=== PATIENT | male | born 1985 | race Caucasian/White ===

== ENCOUNTER 2017-09-01 16:46 | Emergency (ER) | payer BC ==
[2017-09-01] MEDS ORDERED: Sodium Chloride 0.9% 10 ML Syringe FLUSH PRN (16:56)
[2017-09-01] MEDS ORDERED: LORazepam 2 MG/ML SDV IVPUSH ONE (16:58)
[2017-09-01] MEDS ORDERED: Sodium Chloride 0.9% 1,000 ML IV SCH (17:00)
--- NOTE | 2017-09-01 19:07 | EDM.PDOC ---
ED HPI GENERAL MEDICAL PROBLEM - General Chief Complaint: Neurological Problem Stated Complaint: [facility] Time Seen by Provider: 09/01/17 16:51 Source of Information: Reports: Patient, EMS, Family History Limitations: Reports: No Limitations - History of Present Illness INITIAL COMMENTS - FREE TEXT/NARRATIVE: The patient presents by ambulance from home for a seizure. He remembers walking down the [place]ores to his bedroom and then having the police and paramedics around him. He had a generalized tonic clonic seizure. It lasted for a few minutes. He had a seizure over a year ago in May of 2016. He saw a neurologist in [place] twice and he had a complete work up to include an EEG and MRI of his brain. The work up was negative. He did not go on any meds. He has been doing good until today. He has not been getting much sleep lately. When he first arrived he admitted to drinking beer and some shots of vodka but when his was here she said he only gets 1 beer a weekend. He has no chest pain, fever, chills, cough, congestion or runny nose. He has no abdominal pain, nausea or vomiting. Onset: Sudden Duration: Minutes: Location: Reports: Generalized Severity: Severe Improves with: Reports: None Worsens with: Reports: None Associated Symptoms: Reports: No Other Symptoms Treatments [employer]: Reports: EKG Lower Back Pain Score (Numeric/FACES): 6 - Related Data Allergies Allergy/AdvReac Type Severity Reaction Status Date / Time No Known Allergies Allergy Verified 09/01/17 16:56 Home Meds: Home Meds levETIRAcetam [Keppra] 750 mg PO BID #60 tab 09/01/17 [Rx] Past Medical History Musculoskeletal History: Reports: Fracture Neurological History: Reports: Seizure Oncologic (Cancer) History: Reports: None Social & Family History - Tobacco Use Smoking Status *Q: Never Smoker - Alcohol Use Days Per Week of Alcohol Use: 7 Number of Drinks Per Day: 2 Total Drinks Per Week: 14 - Recreational Drug Use Recreational Drug Use: No ED ROS GENERAL - Review of Systems Review Of Systems: See Below Constitutional: Reports: No Symptoms HEENT: Reports: No Symptoms Respiratory: Reports: No Symptoms Cardiovascular: Reports: No Symptoms Endocrine: Reports: No Symptoms GI/Abdominal: Reports: No Symptoms : Reports: No Symptoms Musculoskeletal: Reports: No Symptoms Skin: Reports: No Symptoms Neurological: Reports: Seizure - Physical Exam Exam: See Below Exam Limited By: No Limitations General Appearance: Alert, No Apparent Distress Ears: Normal External Exam Nose: Normal Inspection Head Exam: Atraumatic, Normocephalic Neck: Normal Inspection Respiratory/Chest: No Respiratory Distress, Lungs Clear, Normal Breath Sounds Cardiovascular: Regular Rate, Rhythm, No Edema, No Murmur GI/Abdominal: Soft, Non-Tender, No Organomegaly, No Mass Neuro Exam (Abbreviated): Alert, Oriented, No Motor/Sensory Deficits Course - Vital Signs Last Recorded V/S: Last Vital Signs Temp 98.8 F 09/01/17 16:50 Pulse 23 L 09/01/17 16:50 Resp 17 09/01/17 16:50 BP 141/89 H 09/01/17 16:50 Pulse Ox 93 L 09/01/17 16:50 - Orders/Labs/Meds Orders: Active Orders 24 hr Category Date Time Status Cardiac Monitoring [RC] . DIRECTED Care 09/01/17 16:56 Active Peripheral IV Care [RC] . DIRECTED Care 09/01/17 16:57 Active Head wo Cont [CT] Stat Exams 09/01/17 16:57 Taken Lumbar Spine 2 or 3V [CR] Stat Exams 09/01/17 16:57 Taken DRUG SCREEN, URINE [URCHEM] Stat Lab 09/01/17 16:56 Ordered Sodium Chloride 0.9% [Normal Saline] 1,000 ml Med 09/01/17 17:00 Active IV ASDIRECTED Sodium Chloride 0.9% [Saline Flush] Med 09/01/17 16:56 Active 10 ml FLUSH ASDIRECTED PRN Peripheral IV Insertion Adult [OM.PC] Stat Oth 09/01/17 16:56 Ordered Medication Orders Sodium Chloride (Normal Saline) 1,000 mls @ 125 mls/hr IV ASDIRECTED CRISSY Last Admin: 09/01/17 17:06 Dose: 125 mls/hr Sodium Chloride (Saline Flush) 10 ml FLUSH ASDIRECTED PRN PRN Reason: Keep Vein Open Last Admin: 09/01/17 17:00 Dose: 10 ml Labs: Laboratory Tests 09/01/17 09/01/17 Range/Units 16:55 16:55 WBC 7.74 (4.23-9.07) K/mm3 RBC 5.15 (4.63-6.08) M/mm3 Hgb 16.5 (13.7-17.5) gm/L Hct 45.7 (40.1-51.0) % MCV 88.7 (79.0-92.2) fl MCH 32.0 (25.7-32.2) pg MCHC 36.1 H (32.2-35.5) g/dl RDW Std Deviation 40.8 (35.1-43.9) fL Plt Count 157 L (163-337) K/mm3 MPV 9.7 (9.4-12.3) fl Neut % (Auto) 63.9 (34.0-67.9) % Lymph % (Auto) 25.5 (21.8-53.1) % Stephenson % (Auto) 9.4 (5.3-12.2) % Eos % (Auto) 0.4 L (0.8-7.0) Baso % (Auto) 0.4 (0.1-1.2) % Neut # (Auto) 4.95 (1.78-5.38) K/mm3 Lymph # (Auto) 1.97 (1.32-3.57) K/mm3 Stephenson # (Auto) 0.73 (0.30-0.82) K/mm3 Eos # (Auto) 0.03 L (0.04-0.54) K/mm3 Baso # (Auto) 0.03 (0.01-0.08) K/mm3 Sodium 135 L (136-145) mEq/L Potassium 3.3 L (3.5-5.1) mEq/L Chloride 97 L (98-107) mEq/L Carbon Dioxide 22 (21-32) mEq/L Anion Gap 19.3 H (5-15) BUN 16 (7-18) mg/dL Creatinine 1.5 H (0.7-1.3) mg/dL Est Cr Clr Drug Dosing 81.44 mL/min Estimated GFR (MDRD) 54 (>60) mL/min BUN/Creatinine Ratio 10.7 L (14-18) Glucose 140 H (74-106) mg/dL Calcium 9.8 (8.5-10.1) mg/dL Magnesium 2.3 (1.8-2.4) mg/dl Total Bilirubin 1.9 H (0.2-1.0) mg/dL AST 163 H (15-37) U/L ALT 158 H (16-63) U/L Alkaline Phosphatase 100 (46-116) U/L Total Protein 8.0 (6.4-8.2) g/dl Albumin 3.8 (3.4-5.0) g/dl Globulin 4.2 gm/dL Albumin/Globulin Ratio 0.9 L (1-2) Ethyl Alcohol 0.00 (0.00) gm% Meds: Medications Generic Name Dose Route Start Last Admin Trade Name Freq PRN Reason Stop Dose Admin Sodium Chloride 1,000 mls @ 125 mls/hr 09/01/17 17:00 09/01/17 17:06 Normal Saline IV 125 mls/hr ASDIRECTED CRISSY Administration Sodium Chloride 10 ml 09/01/17 16:56 09/01/17 17:00 Saline Flush FLUSH 10 ml ASDIRECTED PRN Administration Keep Vein Open Discontinued Medications Generic Name Dose Route Start Last Admin Trade Name Freq PRN Reason Stop Dose Admin Lorazepam 1 mg 09/01/17 16:58 09/01/17 17:03 Ativan IVPUSH 09/01/17 16:59 1 mg ONETIME ONE Administration - Re-Assessments/Exams Free Text/Narrative Re-Assessment/Exam: 09/01/17 19:08 I ordered an IV NS at 125mL/hr, ativan 1mg IV, CT of his head and labs. 09/01/17 19:[address] shows no acute intracranial process. Potential chiari 1 malformation. His CBC looks good. His Na is a little low at 135. His K was low at 3.3. His creatinine was elevated at 1.5. His glucose was elevated at 140. His total bili is elevated at 1.9. His AST is elevated at 163. his ALT is elevated at 158. His ETOH is negative. I called Dr Harmon at [facility] in [place] and he recommended loading him with keppra here and getting him on some keppra 750mg 2 times per day. Departure - Departure Time of Disposition: 19:15 Disposition: Home, Self-Care 01 Condition: Good Clinical Impression: Seizure - Discharge Information Prescriptions: levETIRAcetam [Keppra] 750 mg PO BID #60 tab Referrals: Renate Castellanos PA-C [Primary Care Provider] - 1 Week Bruce Harmon MD [Ordering Only Provider] - 1 Week Additional Instructions: Stop drinking alcohol. Take the keppra 2 times per day. Drink plenty of fluids and try to get some rest. Please return if you are worse. Follow up with Dr Harmon or one of his partners. - My Orders Last 24 Hours: My Active Orders 09/01/17 16:56 Cardiac Monitoring [RC] . DIRECTED DRUG SCREEN, URINE [URCHEM] Stat Sodium Chloride 0.9% [Saline Flush] 10 ml FLUSH ASDIRECTED PRN Peripheral IV Insertion Adult [OM.PC] Stat 09/01/17 16:57 Peripheral IV Care [RC] . DIRECTED Head wo Cont [CT] Stat Lumbar Spine 2 or 3V [CR] Stat 09/01/17 17:00 Sodium Chloride 0.9% [Normal Saline] 1,000 ml IV ASDIRECTED - Assessment/Plan Last 24 Hours: My Active Orders 09/01/17 16:56 Cardiac Monitoring [RC] . DIRECTED DRUG SCREEN, URINE [URCHEM] Stat Sodium Chloride 0.9% [Saline Flush] 10 ml FLUSH ASDIRECTED PRN Peripheral IV Insertion Adult [OM.PC] Stat 09/01/17 16:57 Peripheral IV Care [RC] . DIRECTED Head wo Cont [CT] Stat Lumbar Spine 2 or 3V [CR] Stat 09/01/17 17:00 Sodium Chloride 0.9% [Normal Saline] 1,000 ml IV ASDIRECTED
[2017-09-01] MEDS ORDERED: Sodium Chloride 0.9% 1,000 ML IV ONE (19:09)
[2017-09-01] MEDS ORDERED: levETIRAcetam 1,000 MG in Sodium Chloride 0.9% 100 ML IV ONE (19:10)
--- NOTE | 2017-09-03 08:01 | CR ---
Lumbar spine: AP, lateral and coned-down lateral views centered to the lumbosacral junction were obtained. Comparison: No previous study. Anterior wedge deformity is noted of L1. Age of this is indeterminate by x-ray. Other vertebral body heights and disc spaces are maintained. Pedicles as well as transverse and spinous processes are intact. Sacroiliac joints are within normal limits. Impression: 1. Anterior wedge deformity of L1. Age of this is indeterminate. If further aging is needed, MRI would be helpful. 2. No additional abnormality is seen on three-view lumbar spine study. Diagnostic code #3
--- NOTE | 2017-09-03 08:01 | CT ---
Head CT Technique: Multiple axial sections through the brain were obtained. Intravenous contrast was not utilized. Comparison: No prior intracranial imaging. Findings: Ventricles along the basal cisterns and sulci over the convexities are within normal limits for the patient's age. Calcification is seen within the anterior left scalp and posterior right scalp which is believed to be incidental. No abnormal parenchymal densities are seen. No evidence of intracranial hemorrhage. No midline shift or mass effect is seen. Bone window settings were reviewed which show the visualized sinuses to appear clear. No acute calvarial abnormality is seen. Impression: 1. Nothing acute is seen on noncontrast head CT study. Preliminary report by samuel states possible Chiari I malformation which I do not believe is present as scans did not include the inferior foramen Magnum to confirm. Diagnostic code #1 I agree with preliminary report from [facility], with incidental disagreement as noted above, preliminary report finalized at 09/01/17, 6:33 PM Central Time
== END 2017-09-01 20:14 | disposition home or self-care (01) ==
LOC: JD.ED 16:46
DX: R56.9 Unspecified convulsions (principal)
CPT/HCPCS: 36415; 70450; 72100; 80053; 83735; 85025; 96361; 96365; 96375; 99285; G0480; J1953; J2060; J7030; J7040; J7050; 99284

== ENCOUNTER 2017-10-09 14:12 | Emergency (ER) | payer BC ==
[2017-10-09] MEDS ORDERED: Sodium Chloride 0.9% 10 ML Syringe FLUSH PRN (14:45)
[2017-10-09] MEDS ORDERED: Ondansetron 4 MG/2 ML SDV IVPUSH ONE (16:17)
--- NOTE | 2017-10-09 16:17 | EDM.PDOC ---
ED HPI GENERAL MEDICAL PROBLEM - General Chief Complaint: Neurological Problem Stated Complaint: HAS HAD 2 SEIZUERES TODAY Time Seen by Provider: 10/09/17 14:39 Source of Information: Reports: Patient, RN Notes Reviewed - History of Present Illness INITIAL COMMENTS - FREE TEXT/NARRATIVE: 31-year-old male has been brought in by having had 2 seizures today. He had one seizure very early this morning about 9 hours ago and then had a second seizure around noon today about one hour ago. His states that he stiffened up, eyes rolled back with each seizure lasting in about the 5-10 minute range. After each seizure he was very sleepy for a while and also confused for a while he has had prior seizures, one about a month ago and then another about 15 months ago he has seen neurology after that first seizure 15 months ago, had EEG, MRI. After his seizure a month ago Keppra 750 twice a day was prescribed. Patient took one dose, red the sheet about side effects and decided not to take that. His prior seizures have felt to be alcohol withdrawal related. Did have a couple of shots of alcohol last evening after "not having alcohol for a month". He is otherwise healthy with no other known medical problems. Middle Back Pain Score (Numeric/FACES): 6 - Related Data Allergies Allergy/AdvReac Type Severity Reaction Status Date / Time No Known Allergies Allergy Verified 10/09/17 14:18 Home Meds: Home Meds levETIRAcetam [Keppra] 750 mg PO BID #60 tab 09/01/17 [Rx] Past Medical History Musculoskeletal History: Reports: Fracture Neurological History: Reports: Seizure Oncologic (Cancer) History: Reports: None Social & Family History - Tobacco Use Smoking Status *Q: Never Smoker Second Hand Smoke Exposure: No - Caffeine Use Caffeine Use: Reports: None - Alcohol Use Days Per Week of Alcohol Use: 7 Number of Drinks Per Day: 2 Total Drinks Per Week: 14 - Recreational Drug Use Recreational Drug Use: No ED ROS GENERAL - Review of Systems Review Of Systems: See Below Constitutional: Denies: Fever, Chills HEENT: Denies: Throat Pain Respiratory: Denies: Shortness of Breath Cardiovascular: Denies: Chest Pain GI/Abdominal: Denies: Abdominal Pain, Nausea, Vomiting Musculoskeletal: Reports: Back Pain Neurological: Reports: Headache - Physical Exam Exam: See Below General Appearance: Alert, Anxious Eye Exam: Bilateral Eye: PERRL Ears: Normal External Exam Nose: Normal Inspection Throat/Mouth: Evidence of Tongue Biting (Small abrasion left lateral tongue) Head Exam: Atraumatic. No: Facial Swelling Neck: Supple, Full Range of Motion Respiratory/Chest: No Respiratory Distress, Lungs Clear, Normal Breath Sounds Cardiovascular: Regular Rate, Rhythm GI/Abdominal: Soft, Non-Tender Neuro Exam (Abbreviated): Alert, Oriented, No Motor/Sensory Deficits Skin Exam: Warm, Dry, Normal Color Course - Vital Signs Last Recorded V/S: Last Vital Signs Temp 98.4 F 10/09/17 14:19 Pulse 103 H 10/09/17 14:19 Resp 18 10/09/17 14:19 BP 127/89 10/09/17 14:19 Pulse Ox 93 L 10/09/17 14:19 - Orders/Labs/Meds Orders: Active Orders 24 hr Category Date Time Status Peripheral IV Care [RC] . DIRECTED Care 10/09/17 14:46 Active Sodium Chloride 0.9% [Saline Flush] Med 10/09/17 14:45 Active 10 ml FLUSH ASDIRECTED PRN Peripheral IV Insertion Adult [OM.PC] Stat Oth 10/09/17 14:46 Ordered Medication Orders Sodium Chloride (Saline Flush) 10 ml FLUSH ASDIRECTED PRN PRN Reason: Keep Vein Open Last Admin: 10/09/17 15:59 Dose: 10 ml Labs: Laboratory Tests 10/09/17 10/09/17 Range/Units 14:20 14:20 WBC 14.93 H (4.23-9.07) K/mm3 RBC 5.35 (4.63-6.08) M/mm3 Hgb 16.9 (13.7-17.5) gm/L Hct 47.6 (40.1-51.0) % MCV 89.0 (79.0-92.2) fl MCH 31.6 (25.7-32.2) pg MCHC 35.5 (32.2-35.5) g/dl RDW Std Deviation 39.6 (35.1-43.9) fL Plt Count 193 (163-337) K/mm3 MPV 10.3 (9.4-12.3) fl Neut % (Auto) 87.4 H (34.0-67.9) % Lymph % (Auto) 6.2 L (21.8-53.1) % Mcdonough % (Auto) 5.8 (5.3-12.2) % Eos % (Auto) 0.1 L (0.8-7.0) Baso % (Auto) 0.1 (0.1-1.2) % Neut # (Auto) 13.07 H (1.78-5.38) K/mm3 Lymph # (Auto) 0.92 L (1.32-3.57) K/mm3 Mcdonough # (Auto) 0.86 H (0.30-0.82) K/mm3 Eos # (Auto) 0.01 L (0.04-0.54) K/mm3 Baso # (Auto) 0.01 (0.01-0.08) K/mm3 Manual Slide Review Normal smear Sodium 137 (136-145) mEq/L Potassium 4.3 (3.5-5.1) mEq/L Chloride 102 (98-107) mEq/L Carbon Dioxide 23 (21-32) mEq/L Anion Gap 16.3 H (5-15) BUN 11 (7-18) mg/dL Creatinine 1.5 H (0.7-1.3) mg/dL Est Cr Clr Drug Dosing 81.44 mL/min Estimated GFR (MDRD) 54 (>60) mL/min BUN/Creatinine Ratio 7.3 L (14-18) Glucose 126 H (74-106) mg/dL Calcium 9.8 (8.5-10.1) mg/dL Total Bilirubin 1.2 H (0.2-1.0) mg/dL AST 48 H (15-37) U/L ALT 76 H (16-63) U/L Alkaline Phosphatase 88 (46-116) U/L Total Protein 8.4 H (6.4-8.2) g/dl Albumin 4.3 (3.4-5.0) g/dl Globulin 4.1 gm/dL Albumin/Globulin Ratio 1.1 (1-2) Meds: Medications Generic Name Dose Route Start Last Admin Trade Name Freq PRN Reason Stop Dose Admin Sodium Chloride 10 ml 10/09/17 14:45 10/09/17 15:59 Saline Flush FLUSH 10 ml ASDIRECTED PRN Administration Keep Vein Open Discontinued Medications Generic Name Dose Route Start Last Admin Trade Name Martin PRN Reason Stop Dose Admin Ondansetron HCl 4 mg 10/09/17 16:17 10/09/17 16:19 Zofran IVPUSH 10/09/17 16:18 4 mg ONETIME ONE Administration Ondansetron HCl Confirm 10/09/17 16:18 10/09/17 16:23 Zofran Administered 10/09/17 16:19 Not Given Dose 4 mg .ROUTE .[facility] ONE - Re-Assessments/Exams Free Text/Narrative Re-Assessment/Exam: 10/09/17 16:58. No further seizure activity while here in the ED. Labs came back relatively good. Zofran 4 mg IV for nausea. I offered to bolus him with Keppra but he wants to go home, discharge instructions as documented Departure - Departure Time of Disposition: 16:50 Disposition: Home, Self-Care 01 Condition: Fair Clinical Impression: Seizure - Discharge Information Instructions: Seizure, Adult, [id number] Referrals: PCP,None [Primary Care Provider] - Forms: ED Department Discharge Additional Instructions: Avoid further alcohol, drink plenty of water to maintain hydration, start Keppra as previously prescribed, take 750 mg orally when you get home and then take a second dose this evening toward bedtime, continue that twice daily. No driving for at least 3 months or until medically cleared by your medical provider to resume driving again. Follow-up with your regular medical provider or one of our clinic providers in about 1-2 weeks for recheck, return to ED as needed if symptoms worsening in any way. - My Orders Last 24 Hours: My Active Orders 10/09/17 14:45 Sodium Chloride 0.9% [Saline Flush] 10 ml FLUSH ASDIRECTED PRN 10/09/17 14:46 Peripheral IV Care [RC] . DIRECTED Peripheral IV Insertion Adult [OM.PC] Stat - Assessment/Plan Last 24 Hours: My Active Orders 10/09/17 14:45 Sodium Chloride 0.9% [Saline Flush] 10 ml FLUSH ASDIRECTED PRN 10/09/17 14:46 Peripheral IV Care [RC] . DIRECTED Peripheral IV Insertion Adult [OM.PC] Stat
[2017-10-09] MEDS ORDERED: Ondansetron 4 MG/2 ML SDV ONE (16:18)
== END 2017-10-09 16:58 | disposition home or self-care (01) ==
LOC: JD.ED 14:12
DX: R56.9 Unspecified convulsions (principal); Z79.899 Other long term (current) drug therapy
CPT/HCPCS: 36415; 80053; 85025; 96374; 99284; J2405; J7050

== ENCOUNTER 2018-09-16 09:05 | Emergency (ER) | payer BC ==
[2018-09-16] MEDS ORDERED: Sodium Chloride 0.9% 10 ML Syringe FLUSH PRN (09:21)
[2018-09-16] MEDS ORDERED: Sodium Chloride 0.9% 1,000 ML IV SCH ×2 (09:30→10:30)
[2018-09-16] MEDS ORDERED: LORazepam 2 MG/ML SDV IVPUSH ONE ×2 (09:31→10:26)
[2018-09-16] MEDS ORDERED: Ondansetron 4 MG/2 ML SDV IVPUSH ONE (09:31)
--- NOTE | 2018-09-16 10:22 | EDM.PDOCBH ---
ED HPI GENERAL MEDICAL PROBLEM - General Chief Complaint: Drug or Alcohol Abuse Stated Complaint: WITHDRAWL FROM ALCOHOL-SEIZURES Time Seen by Provider: 09/16/18 09:20 Source of Information: Reports: Patient, RN Notes Reviewed - History of Present Illness INITIAL COMMENTS - FREE TEXT/NARRATIVE: 32-year-old male comes in with symptoms of alcohol withdrawal. He has been drinking quite heavily, steadily for about 3 or 4 years. He was dry about 4 years ago for 8 months prior to back to drinking heavily. He drinks vodka daily. That is messing up his life. He did stop 1-1/2 days ago. No alcohol yesterday or today. He is getting the shakes. He is very nauseated, difficulty drinking even water and has been vomiting through the night. He states that when he has tried to stop drinking in the past he has suffered withdrawal seizures. He feels like his brain is "grow foggy" this morning. He states he does see something like flashes and as though the han are moving a bit but nothing super bad at this time for visual or auditory hallucinations. Abdomen Pain Score (Numeric/FACES): 8 - Related Data Allergies Allergy/AdvReac Type Severity Reaction Status Date / Time No Known Allergies Allergy Verified 09/16/18 09:20 Home Meds: Home Meds . [No Known Home Meds] 09/16/18 [History] Past Medical History Musculoskeletal History: Reports: Fracture Neurological History: Reports: Seizure Psychiatric History: Reports: Addiction, Depression Oncologic (Cancer) History: Reports: None - Past Surgical History Musculoskeletal Surgical History: Reports: Arthroscopic Knee, Shoulder Surgery Social & Family History - Tobacco Use Smoking Status *Q: Never Smoker Second Hand Smoke Exposure: No - Caffeine Use Caffeine Use: Reports: None - Alcohol Use Days Per Week of Alcohol Use: 7 Number of Drinks Per Day: 1 Total Drinks Per Week: 7 - Recreational Drug Use Recreational Drug Use: No ED ROS GENERAL - Review of Systems Review Of Systems: See Below Constitutional: Denies: Fever, Chills, Diaphoresis HEENT: Denies: Sinus Problem, Throat Pain Respiratory: Denies: Shortness of Breath, Wheezing Cardiovascular: Denies: Chest Pain GI/Abdominal: Reports: Decreased Appetite, Nausea, Vomiting. Denies: Abdominal Pain Musculoskeletal: Reports: No Symptoms Skin: Reports: No Symptoms Neurological: Reports: Dizziness, Headache ED EXAM, BEHAVIORAL HEALTH - Physical Exam Exam: See Below General Appearance: Alert, Mild Distress Eye Exam: Bilateral Eye: PERRL Throat/Mouth: Normal Inspection, Other (oral ) Head: Atraumatic. No: Facial Swelling Neck: Supple, Full Range of Motion Respiratory/Chest: No Respiratory Distress, Lungs Clear, Normal Breath Sounds Cardiovascular: Regular Rate, Rhythm GI/Abdominal: Soft, Non-Tender. No: Guarding Back Exam: No: CVA Tenderness (L), CVA Tenderness (R) Extremities: Normal Inspection, Normal Range of Motion Neurological: Alert, Other (mild tremor, finger to nose is normal bilat) Psychiatric: Alert, Flat Affect, Visual Hallucinations (states he does see some "flashing lights off and on"). No: Suicidal Thoughts, Auditory Hallucinations Skin Exam: Warm, Dry, Normal color COURSE, BEHAVIORAL HEALTH COMP - Course Vital Signs: Last Vital Signs Temp 98.4 F 09/16/18 09:11 Pulse 95 09/16/18 09:11 Resp 16 09/16/18 09:11 BP 151/107 H 09/16/18 09:11 Pulse Ox 100 09/16/18 09:11 Orders, Labs, Meds: Laboratory Tests 09/16/18 09/16/18 09/16/18 Range/Units 09:17 09:17 09:17 WBC 7.43 (4.23-9.07) K/mm3 RBC 5.23 (4.63-6.08) M/mm3 Hgb 18.1 H (13.7-17.5) gm/L Hct 51.3 H (40.1-51.0) % MCV 98.1 H (79.0-92.2) fl MCH 34.6 H (25.7-32.2) pg MCHC 35.3 (32.2-35.5) g/dl RDW Std Deviation 49.4 H (35.1-43.9) fL Plt Count 114 L (163-337) K/mm3 MPV 10.3 (9.4-12.3) fl Neut % (Auto) 85.5 H (34.0-67.9) % Lymph % (Auto) 6.7 L (21.8-53.1) % Cassia % (Auto) 7.4 (5.3-12.2) % Eos % (Auto) 0 L (0.8-7.0) Baso % (Auto) 0.3 (0.1-1.2) % Neut # (Auto) 6.35 H (1.78-5.38) K/mm3 Lymph # (Auto) 0.50 L (1.32-3.57) K/mm3 Cassia # (Auto) 0.55 (0.30-0.82) K/mm3 Eos # (Auto) 0.00 L (0.04-0.54) K/mm3 Baso # (Auto) 0.02 (0.01-0.08) K/mm3 Manual Slide Review Abnormal smear Sodium 138 (136-145) mEq/L Potassium 3.1 L (3.5-5.1) mEq/L Chloride 97 L (98-107) mEq/L Carbon Dioxide 24 (21-32) mEq/L Anion Gap 20.1 H (5-15) BUN 11 (7-18) mg/dL Creatinine 1.3 (0.7-1.3) mg/dL Est Cr Clr Drug Dosing 90.49 mL/min Estimated GFR (MDRD) > 60 (>60) mL/min BUN/Creatinine Ratio 8.5 L (14-18) Glucose 161 H (74-106) mg/dL Calcium 9.5 (8.5-10.1) mg/dL Magnesium 1.6 L (1.8-2.4) mg/dl Total Bilirubin 3.1 H (0.2-1.0) mg/dL AST 203 H (15-37) U/L ALT 106 H (16-63) U/L Alkaline Phosphatase 116 (46-116) U/L Total Protein 8.9 H (6.4-8.2) g/dl Albumin 4.0 (3.4-5.0) g/dl Globulin 4.9 gm/dL Albumin/Globulin Ratio 0.8 L (1-2) Ethyl Alcohol 0.00 (0.00) gm% Medications Discontinued Medications Generic Name Dose Route Start Last Admin Trade Name Freq PRN Reason Stop Dose Admin Sodium Chloride 1,000 mls @ 999 mls/hr 09/16/18 09:30 09/16/18 09:29 Normal Saline IV 999 mls/hr ONETIME CRISSY Administration Sodium Chloride 1,000 mls @ 999 mls/hr 09/16/18 10:30 09/16/18 10:38 Normal Saline IV 999 mls/hr ONETIME CRISSY Administration Lorazepam 1 mg 09/16/18 09:31 09/16/18 09:46 Ativan IVPUSH 09/16/18 09:32 1 mg ONETIME ONE Administration Lorazepam 1 mg 09/16/18 10:26 09/16/18 10:38 Ativan IVPUSH 09/16/18 10:27 1 mg ONETIME ONE Administration Ondansetron HCl 4 mg 09/16/18 09:31 09/16/18 09:46 Zofran IVPUSH 09/16/18 09:32 4 mg ONETIME ONE Administration Sodium Chloride 10 ml 09/16/18 09:21 09/16/18 09:29 Saline Flush FLUSH 10 ml ASDIRECTED PRN Administration Keep Vein Open Re-Assessment/Re-Exam: We are on ICU by version which is where we would typically admit this patient with his history and current symptomatology. I have called [facility], visited with Dr. Lopez, Hospitalist who does accept patient in transfer. His father will be transporting him by private vehicle so they are requesting he be admitted through the ED to make sure he is stable for Hospitalist admission. Have given him 2 L normal saline IV, 1 mg Ativan IV 2. Have also given Zofran 4 mg IV. He has not been actively vomiting while here in the ED. He is sleeping at this time. Labs show an elevated anion gap of 20, potassium 3.1, magnesium 1.6, liver enzymes and bilirubin mildly elevated. Departure - Departure Time of Disposition: 11:24 Disposition: DC/Tfer to Acute Hospital 02 Clinical Impression: Alcohol dependence Qualifiers: Substance use status: in withdrawal Complication of substance-induced condition : with unspecified complication Qualified Code(s): F10.239 - Alcohol dependence with withdrawal, unspecified Alcohol withdrawal syndrome Qualifiers: Complication of substance-induced condition: with perceptual disturbance Qualified Code(s): F10.232 - Alcohol dependence with withdrawal with perceptual disturbance - Discharge Information Referrals: PCP,None [Primary Care Provider] - Additional Instructions: Transfer to [facility]. Go to the ED. They will do a screening exam there to make sure you are medically stable for admission.
== END 2018-09-16 12:30 ==
LOC: JD.ED 09:05
DX: F10.232 Alcohol dependence with withdrawal with perceptual disturbance (principal)
CPT/HCPCS: 36415; 80053; 83735; 85025; 96361; 96374; 96375; 96376; 99284; G0480; J2060; J2405; J7040

== ENCOUNTER 2020-11-10 17:13 | Emergency (ER) | payer BC ==
--- NOTE | 2020-11-10 17:47 | EDM.PDOC ---
ED HPI GENERAL MEDICAL PROBLEM - General Chief Complaint: Neuro Symptoms/Deficits Stated Complaint: NUMBNESS IN LT ARM/FACE Time Seen by Provider: 11/10/20 17:46 Source of Information: Reports: Patient History Limitations: Reports: No Limitations - History of Present Illness INITIAL COMMENTS - FREE TEXT/NARRATIVE: 34-year-old male presents to the ED for evaluation of fairly sudden onset of left hemifacial numbness and tingling and then left arm numbness and tingling particular in the distribution of the biceps and forearm. 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 Started about [place] which is 26 miles from [place] and it still present although it is less so than it was. He also felt that he developed some mild shortness of breath for period of time but this is subsequently gone away as well. He does take Vyvanse and Adderall for ADD HD. Blood pressure upon arrival was mildly elevated at 146/94. Heart rate was 82 and sinus. He reports when he got out of the truck and came into the hospital he could walk with no disturbance in his balance or vision. He states that over the last 10 to 15 minutes the intensity of the numbness and tingling has dissipated substantially. I cannot identify any motor power or tone weakness in any of his extremities. Cranial nerves II to XII were intact. Therefore a stroke alert was not called. Onset: Today, Sudden Onset Date: 11/10/20 Onset Time: 16:35 Duration: Minutes:, Improving Location: Reports: Face (Left hemifacial numbness and tingling), Upper Extremity, Left (Left upper extremity numbness and tingling particular in the distribution of the biceps distribution.) Quality: Reports: Other (No pain) Severity: Moderate Improves with: Reports: Other (Improved with time.) Worsens with: Reports: None Context: Denies: Activity, Exercise, Lifting, Sick Contact, Trauma, Other Associated Symptoms: Reports: No Other Symptoms, Headaches, Shortness of Breath (Very transient in the last 5 to 10 miles). Denies: Confusion, Chest Pain, Cough, cough w sputum, Diaphoresis, Fever/Chills, Loss of Appetite, Malaise, Nausea/Vomiting, Rash, Seizure (He states he has had a headache most of the day but no worse than it was. He is not prone to migraines.), Syncope, Weakness Treatments PURCHASING OFFICER: Reports: Other (see below) (None.) - Related Data Allergies Allergy/AdvReac Type Severity Reaction Status Date / Time No Known Allergies Allergy Verified 11/10/20 17:25 Home Meds: Home Meds Amphetamine/Dextroamphetamine [Adderall] 5 mg PO DAILY 11/10/20 [History] Lisdexamfetamine [Vyvanse] 1 tab PO DAILY 11/10/20 [History] Past Medical History Musculoskeletal History: Reports: Fracture Neurological History: Reports: Seizure Psychiatric History: Reports: ADHD, Addiction, Depression Oncologic (Cancer) History: Reports: None - Past Surgical History Musculoskeletal Surgical History: Reports: Arthroscopic Knee, Shoulder Surgery Social & Family History - Tobacco Use Tobacco Use Status *Q: Never Tobacco User - Caffeine Use Caffeine Use: Reports: Coffee - Recreational Drug Use Recreational Drug Use: No - Living Situation & Occupation Living situation: Reports: Occupation: Employed (Self-employed) ED ROS GENERAL - Review of Systems Review Of Systems: See Below Constitutional: Denies: Fever, Chills, Malaise, Weakness, Fatigue, Decreased Appetite, Weight Loss HEENT: Reports: No Symptoms Respiratory: Reports: Shortness of Breath (Transient shortness of breath better now. O2 sats are in 96% on room air.) Cardiovascular: Reports: No Symptoms, Chest Pain (Transient transient chest discomfort occurring about 10 minutes outside of town.), Blood Pressure Problem (Blood pressures been a bit elevated on ADDH medications.). Denies: Dyspnea on Exertion, Edema, Lightheadedness, Orthopnea, Palpitations Endocrine: Reports: No Symptoms GI/Abdominal: Reports: No Symptoms : Reports: No Symptoms Musculoskeletal: Reports: No Symptoms Skin: Reports: No Symptoms Neurological: Reports: Headache, Numbness, Paresthesia (He has had a headache most of the day.), Tingling (Numbness and tingling left side of his face and left upper extremity in the distribution of the biceps at the same time. This occurred while driving his motor vehicle back from [place] to [facility] after work. It lasted about 25 minutes. By time he came to the hospital had improved o). Denies: Confusion ( by the time he came into the ED.), Dizziness, Seizure, Syncope, Trouble Speaking ( Left hemiface left upper extremity. No lower extremity problems), Difficulty Walking, Weakness, Change in Speech Psychiatric: Reports: No Symptoms Hematologic/Lymphatic: Reports: No Symptoms Immunologic: Reports: No Symptoms ED EXAM, NEURO - Physical Exam Exam: See Below Exam Limited By: No Limitations General Appearance: Alert, WD/WN, No Apparent Distress, Other (Temperature was 36.0. Heart rate 87 and sinus respiratory 16 with O2 sats reported to be 96% room air BP initially was 156 100. It is subsequently come down to 139/94) Eye Exam: Bilateral Eye: Normal Inspection, PERRL Throat/Mouth: Normal Inspection, Normal Lips, Normal Oropharynx, Other Head Exam: Atraumatic, Normocephalic (Uvula is in the midline.) Neck: Normal Inspection, Supple, Non-Tender, Full Range of Motion. No: Carotid Bruit, Lymphadenopathy (L), Lymphadenopathy (R) Respiratory/Chest: No Respiratory Distress, Lungs Clear, Normal Breath Sounds, No Accessory Muscle Use Cardiovascular: Normal Peripheral Pulses, Regular Rate, Rhythm, No Edema, No Gallop, No JVD, No Murmur, No Rub GI/Abdominal: Normal Bowel Sounds, Soft, Non-Tender, No Organomegaly, No Distention, No Abnormal Bruit Neurological: Alert, Normal Mood/Affect, Normal Dorsiflexion, CN II-XII Intact, Normal Plantar Flexion, Normal Reflexes, No Motor/Sensory Deficits, Oriented x 3, Other (Normal [id number] evaluation. Normal rapid alternating movements. No pronator drift.). No: Normal Gait DTR: 1+: Achilles (R), Achilles (L), 2+: Bicep (R), Bicep (L), Patella (R), Patella (L) Extremities: Normal Inspection, Normal Range of Motion, Non-Tender, No Pedal Edema Psychiatric: Normal Affect, Normal Mood Skin Exam: Warm, Dry, Intact, Normal Color, No Rash #1 Interpretation EKG Date: 11/10/20 Time: 17:18 Rhythm: NSR Rate (Beats/Min): 87 [place]: Normal P-Wave: Present QRS: Other (Nonspecific intraventricular conduction delay) ST-T: Normal QT: Prolonged (Mildly prolonged) EKG Interpretation Comments: Abnormal ECG Course - Vital Signs Last Recorded V/S: Last Vital Signs Temp 36.0 C L 11/10/20 17: Pulse 87 11/10/20 17:21 Resp 16 11/10/20 17:21 BP 156/100 H 11/10/20 17:21 Pulse Ox 95 11/10/20 17:21 - Orders/Labs/Meds Orders: Active Orders 24 hr Category Date Time Status EKG 12 Lead [EKG Documentation Completion] [RC] ROUTINE Care 11/10/20 17:18 Active Head wo Cont [CT] Stat Exams 11/10/20 18:01 Taken Labs: Laboratory Tests 11/10/20 11/10/20 11/10/20 Range/Units 17:15 17:15 17:55 WBC 5.78 (4.23-9.07) K/mm3 RBC 4.93 (4.63-6.08) M/mm3 Hgb 15.6 (13.7-17.5) gm/dl Hct 45.8 (40.1-51.0) % MCV 92.9 H (79.0-92.2) fl MCH 31.6 (25.7-32.2) pg MCHC 34.1 (32.2-35.5) g/dl RDW Std Deviation 42.0 (35.1-43.9) fL Plt Count 174 (163-337) K/mm3 MPV 9.9 (9.4-12.3) fl Neut % (Auto) 58.3 (34.0-67.9) % Lymph % (Auto) 27.7 (21.8-53.1) % [place]rell % (Auto) 9.9 (5.3-12.2) % Eos % (Auto) 3.3 (0.8-7.0) Baso % (Auto) 0.5 (0.1-1.2) % Neut # (Auto) 3.37 (1.78-5.38) K/mm3 Lymph # (Auto) 1.60 (1.32-3.57) K/mm3 [place] # (Auto) 0.57 (0.30-0.82) K/mm3 Eos # (Auto) 0.19 (0.04-0.54) K/mm3 Baso # (Auto) 0.03 (0.01-0.08) K/mm3 D-Dimer, Quantitative < 0.19 L (0.19-0.50) mg/L Sodium 141 (136-145) mEq/L Potassium 3.4 L (3.5-5.1) mEq/L Chloride 102 (98-107) mEq/L Carbon Dioxide 31 (21-32) mEq/L Anion Gap 11.4 (5-15) BUN 21 H (7-18) mg/dL Creatinine 1.2 (0.7-1.3) mg/dL Est Cr Clr Drug Dosing 93.41 mL/min Estimated GFR (MDRD) > 60 (>60) mL/min BUN/Creatinine Ratio 17.5 (14-18) Glucose 94 (70-99) mg/dL Calcium 8.8 (8.5-10.1) mg/dL Magnesium 2.1 (1.8-2.4) mg/dL Total Bilirubin 0.6 (0.2-1.0) mg/dL AST 20 (15-37) U/L ALT 26 (16-63) U/L Alkaline Phosphatase 65 (46-116) U/L Troponin I (0.00-0.056) ng/mL Total Protein 7.5 (6.4-8.2) g/dl Albumin 4.2 (3.4-5.0) g/dl Globulin 3.3 gm/dL Albumin/Globulin Ratio 1.3 (1-2) 11/10/20 Range/Units 17:55 WBC (4.23-9.07) K/mm3 RBC (4.63-6.08) M/mm3 Hgb (13.7-17.5) gm/dl Hct (40.1-51.0) % MCV (79.0-92.2) fl MCH (25.7-32.2) pg MCHC (32.2-35.5) g/dl RDW Std Deviation (35.1-43.9) fL Plt Count (163-337) K/mm3 MPV (9.4-12.3) fl Neut % (Auto) (34.0-67.9) % Lymph % (Auto) (21.8-53.1) % [place]rell % (Auto) (5.3-12.2) % Eos % (Auto) (0.8-7.0) Baso % (Auto) (0.1-1.2) % Neut # (Auto) (1.78-5.38) K/mm3 Lymph # (Auto) (1.32-3.57) K/mm3 [place]rell # (Auto) (0.30-0.82) K/mm3 Eos # (Auto) (0.04-0.54) K/mm3 Baso # (Auto) (0.01-0.08) K/mm3 D-Dimer, Quantitative (0.19-0.50) mg/L Sodium (136-145) mEq/L Potassium (3.5-5.1) mEq/L Chloride (98-107) mEq/L Carbon Dioxide (21-32) mEq/L Anion Gap (5-15) BUN (7-18) mg/dL Creatinine (0.7-1.3) mg/dL Est Cr Clr Drug Dosing mL/min Estimated GFR (MDRD) (>60) mL/min BUN/Creatinine Ratio (14-18) Glucose (70-99) mg/dL Calcium (8.5-10.1) mg/dL Magnesium (1.8-2.4) mg/dL Total Bilirubin (0.2-1.0) mg/dL AST (15-37) U/L ALT (16-63) U/L Alkaline Phosphatase (46-116) U/L Troponin I < 0.017 (0.00-0.056) ng/mL Total Protein (6.4-8.2) g/dl Albumin (3.4-5.0) g/dl Globulin gm/dL Albumin/Globulin Ratio (1-2) - Radiology Interpretation Free Text/Narrative:: 34-year-old male attends the ED for evaluation of numbness and tingling in the left side of his face and left upper extremity primarily in the distribution of his biceps muscle. This occurred with his arms in his lap driving his truck home from work up in [place] to back to [place] today. Symptoms [place] about [place] and persisted until he got to the hospital when things seem to slowly get much better. He did not appreciate any muscle weakness. He had no trouble walking no visual acuity changes no balance changes. He has had a headache a good portion of the day but is no worse than it was this morning. Blood pressure was a little elevated when he came into the ED but it subsequently came down to 188/37. Neurological exam was completely normal. He identified that there seemed to be a sensory deficit left side of face including the temporal aspect of his scalp as well as left arm in the axillary nerve and in the C5-C6 distribution of his arm in comparison to the right side. No motor power or tone deficit identified in either extremity. No lower extremity changes identified neurologically either. Reflexes were intact. Rapid alternating movements [id number] and no pronator drift could be identified. Plan CT head will be obtained due to the history of headache and then neurological symptoms. - Re-Assessments/Exams Free Text/Narrative Re-Assessment/Exam: 11/10/20 18:34 White count is normal at 5.78. The differential shows 58.3% neutrophils. Hemoglobin is 15.6 and hematocrit is 45.8. MCV is mildly elevated at 92.9. Platelet count 174,000. 11/10/20 18:47 D-dimer is less than 0.19. Sodium 141 potassium slightly low at 3.4. Chloride 102 with a bicarb of 31. Anion gap is 11.4. BUN is 21 with a creatinine 1.2. GFR is greater than 60. Glucose is 94 calcium is 8.8 magnesium is 2.1. Liver function normal. Troponin I is less than 0.017. Total protein 7.5 albumin fraction is 4.2. Departure - Departure Time of Disposition: 18:50 Disposition: Home, Self-Care 01 Condition: Fair Clinical Impression: Arm paresthesia, left, Facial paresthesia - Discharge Information *PRESCRIPTION DRUG MONITORING PROGRAM REVIEWED*: Not Applicable *COPY OF PRESCRIPTION DRUG MONITORING REPORT IN PATIENT MADHAV: Not Applicable Instructions: Paresthesia Forms: ED Department Discharge Additional Instructions: Evaluation in the emergency room today due to sudden onset of left hemifacial numbness and tingling associate with left upper extremity numbness and tingling particularly noted in the biceps distribution. This dissipated after period of about 25 to 30 minutes and occurred in route to back to [place] while driving. There was no compression in any of the nerves in the upper extremity. CT of the head proved to be completely normal with no signs of intracranial mass- effect swelling or tumor. There was also no sign of any bleeding or aneurysm. Lab test done revealed no blood clots and no signs of infection. The only thing that showed up was a slightly low serum potassium level at 3.4 with normal being around 4.0. Potassium will come up with a good meal tonight. It also would not hurt to drink a Gatorade tonight which also contains all of the fluids found in IV fluids including serum potassium. At this point time I would not recommend any further treatment or investigations. However her symptoms continue then further investigations by way of imaging of the blood vessels in the brain either by MRI or CT angiogram would be in order. Sepsis Event Note (ED) - Evaluation Sepsis Screening Result: No Definite Risk - Focused Exam Vital Signs: Vital Signs Temp Pulse Resp BP Pulse Ox 11/10/20 17:21 36.0 C L 87 16 156/100 H 95 - My Orders Last 24 Hours: My Active Orders 11/10/20 17:18 EKG 12 Lead [EKG Documentation Completion] [RC] ROUTINE 11/10/20 18:01 Head wo Cont [CT] Stat - Assessment/Plan Last 24 Hours: My Active Orders 11/10/20 17:18 EKG 12 Lead [EKG Documentation Completion] [RC] ROUTINE 11/10/20 18:01 Head wo Cont [CT] Stat
--- NOTE | 2020-11-11 07:34 | CT ---
Head CT Technique: Multiple axial sections through the brain were obtained. Intravenous contrast was not utilized. Reconstructed coronal and sagittal images were obtained. Comparison: Prior head CT study of 09/01/17. Findings: Ventricles along with basal cisterns and sulci over the convexities are within normal limits for the patient's age. No abnormal parenchymal densities are seen. No evidence of intracranial hemorrhage. No midline shift or mass-effect is seen. Bone window settings were reviewed. Visualized paranasal sinuses and mastoid sinuses showed nothing acute. No acute calvarial finding is appreciated. Impression: 1. Nothing acute is identified on noncontrast head CT study. 2. No change from previous study is seen. Diagnostic code #1 I agree with preliminary report from [facility], finalized on 11/10/20, 7:49 PM CDT, code 1
== END 2020-11-10 19:00 | disposition home or self-care (01) ==
LOC: JD.ED 17:13
DX: R20.2 Paresthesia of skin (principal)
CPT/HCPCS: 36415; 70450; 70450-26; 80053; 83735; 84484; 85025; 85379; 93005; 93010; 99284; 99285-25